=== PATIENT | male | born 1985 | race Caucasian/White ===

== ENCOUNTER 2025-02-14 20:41 | Emergency (ER) | payer OTHER ==
[~2025-02-14] VITALS: Ht 175.3 cm; Wt 143.5 kg
[2025-02-14 23:08] VITALS: BP 136/90; PULSE 87; RESP 16; TEMP 98; O2SAT 95
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
== END 2025-02-15 00:16 | disposition home or self-care (01) ==
LOC: ER 20:58
DX: S40.012A Contusion of left shoulder, initial encounter (principal); S46.912A Strain of unspecified muscle, fascia and tendon at shoulder and upper arm level, left arm, initial encounter; S20.219A Contusion of unspecified front wall of thorax, initial encounter; S50.811A Abrasion of right forearm, initial encounter; V89.2XXA Person injured in unspecified motor-vehicle accident, traffic, initial encounter; Y93.89 Activity, other specified; Y92.89 Other specified places as the place of occurrence of the external cause; Y99.8 Other external cause status
CPT/HCPCS: 71046